=== PATIENT | male | born 2000 | race Caucasian/White ===

== ENCOUNTER 2020-02-04 17:51 | Emergency (ER) | payer OTHER, SELFPAY ==
[2020-02-04 17:52] VITALS: BP 146/97; PULSE 104; RESP 18; TEMP 36.4; O2SAT 100; BMI 30.7
--- NOTE | 2020-02-04 18:01 | RAD_ITS ---
STUDY: X-RAY - LEFT ANKLE REASON FOR EXAM: Male, 19 years old. Jumped and landed on bilateral ankles and feet. Pain and swelling. TECHNIQUE: 3 view(s) of the ankle. COMPARISON: None. FINDINGS: Normal visualized distal tibia and fibula. Normal medial malleolus. Tiny avulsion fragments are seen distal to the tip of the lateral malleolus, no larger than 3 mm. Normal tibiotalar articulation and ankle mortise. Normal visualized talus and calcaneus. The visualized subtalar, talonavicular, calcaneocuboid and tarsal articulations are normal. There is lateral soft tissue swelling. RAD/Ankle min 3 Views IMPRESSION: Tiny avulsion fragments are seen distal to the tip of the lateral malleolus, no larger than 3 mm. Electronically Signed: Tremaine Dunne MD at 18:55 EDT , Service support ,
--- NOTE | 2020-02-04 18:01 | RAD_ITS ---
STUDY: X-RAY - LEFT FOOT CLINICAL: Male, 19 years old. Jumped and landed on bilateral ankles and feet. Pain and swelling. TECHNIQUE: 3 view(s) of the foot. COMPARISON: None. FINDINGS: Normal talus, calcaneus, and tarsal bones. Normal visualized subtalar, talonavicular, calcaneocuboid, tarsal and tarsometatarsal articulations. Normal metatarsi. Normal metatarsophalangeal joint of the great toe. Normal tibial and fibular sesamoid bones. Normal interphalangeal joint of the great toe. Normal phalanges of the great toe. Normal second through fifth metatarsophalangeal joints. Normal interphalangeal joints and phalanges of the lesser toes. The soft tissue structures are unremarkable. There is no demonstrated fracture. RAD/Foot min 3 Views IMPRESSION: Normal x-ray examination of the foot. Electronically Signed: Tremaine Dunne MD at 19:02 EDT , Service support ,
--- NOTE | 2020-02-04 18:01 | RAD_ITS ---
STUDY: X-RAY - RIGHT FOOT CLINICAL: Male, 19 years old. Jumped and landed on bilateral ankles and feet. Pain and swelling. TECHNIQUE: 3 view(s) of the foot. COMPARISON: None. FINDINGS: Normal talus, calcaneus, and tarsal bones. Normal visualized subtalar, talonavicular, calcaneocuboid, tarsal and tarsometatarsal articulations. Normal metatarsi. Normal metatarsophalangeal joint of the great toe. Normal tibial and fibular sesamoid bones. Normal interphalangeal joint of the great toe. Normal phalanges of the great toe. Normal second through fifth metatarsophalangeal joints. Normal interphalangeal joints and phalanges of the lesser toes. The soft tissue structures are unremarkable. There is no demonstrated fracture. RAD/Foot min 3 Views IMPRESSION: Normal x-ray examination of the foot. Electronically Signed: Tremaine Dunne MD at 18:59 EDT , Service support ,
--- NOTE | 2020-02-04 18:01 | RAD_ITS ---
STUDY: X-RAY - RIGHT ANKLE REASON FOR EXAM: Male, 19 years old. Jumped and landed on bilateral ankles and feet. Pain and swelling. TECHNIQUE: 3 view(s) of the ankle. COMPARISON: None. FINDINGS: Normal visualized distal tibia and fibula. Normal medial and lateral malleoli. Normal tibiotalar articulation and ankle mortise. Normal visualized talus and calcaneus. The visualized subtalar, talonavicular, calcaneocuboid and tarsal articulations are normal. There is no demonstrated fracture. There is lateral soft tissue swelling. RAD/Ankle min 3 Views IMPRESSION: No fracture or dislocation. Electronically Signed: Tremaine Dunne MD at 19:02 EDT , Service support ,
--- NOTE | 2020-02-04 18:02 | ED.VIS.GEN ---
History of Present Illness Chief Complaint: Fall Informant: Patient Onset: Today Context: Sudden Onset Timing: Continuous Current Severity: Moderate Maximum Severity: Moderate Narrative: The patient is a 19-year-old male who is otherwise healthy that presents to the emergency department with bilateral ankle injury. Patient was [place] a trampoline park. He states he was on a rockclimbing wall. He was approximately 15 feet up. He jumped out, and instead of landing on his back, he states he landed on both feet. He states that he felt pops in both of his ankles. Since then, has been unable to bear weight. He did not fall to the ground or strike his head. He denies other injury. He states that he took some Tylenol which seemed to help with the pain. Prior similar symptoms: No Recent Illness/Hospitalization: No Past Medical History - Allergies and Home Meds Allergies/Adverse Reactions: Allergies No Known Allergies Allergy (Verified 02/04/20 17:55) Primary Care Physician: Griffin Bob MD [STAFF PHYSICIAN] - Prior records reviewed: Yes Past Medical History: None Surgical History: no surgical history Review of Systems General: Denies: Chills, Fever, Sweats Eyes: Denies: Visual changes - bilaterally, Diplopia ENT: Denies: Rhinorrhea, Sore throat Cardiovascular: Denies: Chest pain, Palpitations Respiratory: Denies: Dyspnea, Cough, Dyspnea on exertion Gastrointestinal: Denies: Abdominal pain, Nausea, Vomiting, Diarrhea, Melena, Hematochezia Genitourinary: Denies: Dysuria, Hematuria, Frequency Musculoskeletal: Denies: Back pain, Extremity Pain Skin: Denies: Rash, Wounds Neurological: Denies: Headache, Weakness, Numbness Physical Exam Vital Signs/Narrative: Vital Signs Temp Pulse Resp BP Pulse Ox 02/04/20 17:52 97.6 F L 104 H 18 146/97 H 100 Inital Vital Signs reviewed: Yes General: Well nourished, Well developed, No Acute Distress Head: Normocephalic, Atraumatic Eyes: Perrl, EOMI ENT: Moist mucous membranes, No rhinorrhea Neck: Supple, Nontender Cardiovascular: Regular rate, Regular rhythm, No murmurs Respiratory: No distress, CTA bilaterally, Chest nontender Abdomen: Soft, Nontender, Nondistended, Normal bowel sounds Back: Nontender, Normal Inspection Extremities: No edema, Tenderness - Tenderness bilateral ankles on both malleoli. No pain at the proximal fibula bilaterally. Mild pain within the foot. Normal pulses. Compartments soft. Skin is intact. Skin: Normal color, No rash Neurological: Alert, Oriented x3, Cranial nerves II-XII grossly intact, Normal Strength, Normal Sensation Psychological: Normal affect, Normal Mood Diagnostic/Tx/Re-eval Clinical Impression(s) from Imaging Studies Ankle X-Ray 02/04/20 18:01 IMPRESSION: No fracture or dislocation. Electronically Signed: Tremaine Dunne MD at 19:02 EDT , Service support , Ankle X-Ray 02/04/20 18:01 IMPRESSION: Tiny avulsion fragments are seen distal to the tip of the lateral malleolus, no larger than 3 mm. Electronically Signed: Tremaine Dunne MD at 18:55 EDT , Service support , Foot X-Ray 02/04/20 18:01 IMPRESSION: Normal x-ray examination of the foot. Electronically Signed: Tremaine Dunne MD at 18:59 EDT , Service support , Foot X-Ray 02/04/20 18:01 IMPRESSION: Normal x-ray examination of the foot. Electronically Signed: Tremaine Dunne MD at 19:02 EDT , Service support , - Medical Decision Making The patient presents with bilateral ankle pain after fall. Plain films were obtained of bilateral ankles and bilateral feet. Right ankle shows no evidence of fracture dislocation. Right foot is also negative. Left foot is negative. Left ankle does demonstrate avulsion fracture of the distal fibula. Patient is placed in Aircast splint on his right ankle. He is placed in a boot orthosis on the left ankle. He declined analgesics. He will be given outpatient follow-up with orthopedics for reevaluation. He is comfortable with this plan of care. Impression 1. Closed avulsion fracture left lateral malleolus 2. Right ankle sprain ED Disposition - Plan for ED Patient: Instructions: ED Ankle Fracture, ED Sprain Ankle Referrals: Griffin Bob MD [STAFF PHYSICIAN] - Additional Instructions: You have an avulsion fracture of the lateral malleolus of the left ankle. There is no evidence of fractures of the right ankle.
[2020-02-04 19:40] VITALS: BP 120/72; PULSE 78; RESP 16; O2SAT 98
== END 2020-02-04 19:45 | disposition home or self-care (01) ==
PROVIDERS: Emergency Provider Emergency Medicine
DX: S82.62XA Displaced fracture of lateral malleolus of left fibula, initial encounter for closed fracture (principal); S93.401A Sprain of unspecified ligament of right ankle, initial encounter; W17.89XA Other fall from one level to another, initial encounter; Y93.31 Activity, mountain climbing, rock climbing and wall climbing; Y92.838 Other recreation area as the place of occurrence of the external cause; Y99.8 Other external cause status
CPT/HCPCS: 73610; 73630; 99284